=== PATIENT | female | born 1990 | race Caucasian/White ===

== ENCOUNTER 2017-10-19 21:29 | Emergency (ER) | payer MEDICAID ==
[~2017-10-19] VITALS: Ht 172.7 cm; Wt 71.2 kg
--- NOTE | 2017-10-19 22:45 | NUR ---
BIB FAMILY C/O LRQ ABD PAIN X 2 HOURS. DENIES N-V-D, NAD NOTED, VSS, RESP EVEN AND UNLABORED, SKIN WARM AND DRY. PT PUT ON HOSPITAL GOWN AND MONITOR, WAITING FOR MD PAGAN.
[2017-10-19] MEDS ORDERED: ONDANSETRON HCL/PF 4 MG/2 ML VIAL IVP ONE (23:00)
[2017-10-19] MEDS ORDERED: IV NS 0.9% 1,000 ML BAG IV ONE (23:00)
[2017-10-19] MEDS ORDERED: MORPHINE SULFATE INJ 2 MG/ML DISP.SYRIN IV ONE (23:00)
--- NOTE | 2017-10-19 23:00 | NUR ---
IV INSERTED, BLOOD SAMPLE OBTAINED AND URINE. WILL CALL LAB FOR RN ACCESS.
[2017-10-19] MEDS ORDERED: ONDANSETRON HCL/PF 4 MG/2 ML VIAL ONE (23:06)
[2017-10-19] MEDS ORDERED: MORPHINE SULFATE INJ 2 MG/ML DISP.SYRIN ONE (23:07)
--- NOTE | 2017-10-19 23:23 | NUR ---
PT REFUSED THE ZOFRAN AND MORPHINE - RETURNED UNOPENED MORPHINE TO [facility].
--- NOTE | 2017-10-19 23:33 | NUR ---
REPORT GIVEN TO TONY CHARGE NURSE.
[2017-10-19 23:39] LABS: BASOPHILS % (AUTO) 0.6 % (0.0-2.0); EOSINOPHILS # (AUTO) 0.1 /CMM (0.0-0.7); EOSINOPHILS % (AUTO) 1.8 % (0.0-6.0); HEMATOCRIT 41 % (33-45); HEMOGLOBIN 13.5 g/dL (11.5-14.8); LYMPHOCYTES # (AUTO) 2.6 /CMM (0.8-4.8); MEAN CORPUSCULAR HEMOGLOBIN 30 PG (26.0-33.0); MEAN CORPUSCULAR HGB CONC 33 g/dl (31.0-36.0); MEAN CORPUSCULAR VOLUME 90 fL (82-100); MONOCYTES # (AUTO) 0.5 /CMM (0.1-1.30); MONOCYTES % (AUTO) 9.2 % (2.0-12.0); NEUTROPHILS # (AUTO) 2.5 /CMM (1.8-8.9); NEUTROPHILS % (AUTO) 43.4 % (43.0-81.0); PLATELET COUNT (AUTO) 213 /CMM (150-450); RDW COEFFICIENT OF VARIATION 11.9 (11.5-15.0); RED BLOOD CELL COUNT(AUTO) 4.54 MIL/uL (4.0-5.2); WHITE BLOOD COUNT (AUTO) 5.8 K/uL (4.3-11.0)
[2017-10-19 23:40] LABS: APPEARANCE,URINE CLEAR (CLEAR); BILIRUBIN,URINE NEGATIVE (NEGATIVE); BLOOD, URINE NEGATIVE Ery/uL (NEGATIVE); COLOR,URINE YELLOW (YELLOW); KETONES,URINE NEGATIVE (NEGATIVE); LEUKOCYTE ESTERASE ,URINE NEGATIVE (NEGATIVE); NITRITE, URINE NEGATIVE (NEGATIVE); PROTEIN,URINE NEGATIVE (NEGATIVE); UGLUCOSE NEGATIVE (NEGATIVE); UROBILINOGEN,URINE 0.2 EU/dL (0.2)
[2017-10-19 23:52] LABS: CALCIUM, SERUM 9.5 mg/dL (8.5-10.1); CREATININE 0.8 mg/dL (0.6-1.3); POTASSIUM 3.7 mmol/L (3.5-5.1)
[2017-10-19 23:59] LABS: ALBUMIN 3.9 g/dL (3.4-5.0); BILIRUBIN,TOTAL 0.2 mg/dL (0.2-1.0); TOTAL PROTEIN, SERUM 7.6 g/dL (6.4-8.2)
[2017-10-20 00:58] VITALS: BP 106/59
--- NOTE | 2017-10-20 00:58 | NUR ---
PT. VERBALIZED UNDERSTANDING OF AFTERCARE INSTRUCTIONS.Patient discharged to home in stable condition. Written and verbal after care instructions given. Patient verbalizes understanding of instruction.
--- NOTE | 2017-10-20 00:58 | NUR ---
IV removed. Catheter intact and site benign. Pressure and 4x4 applied to site. No bleeding noted.
== END 2017-10-20 00:59 | disposition home or self-care (01) ==
LOC: ER 21:29
DX: N20.1 Calculus of ureter (principal)
CPT/HCPCS: 36415; 74176; 80048; 80076; 81001; 83690; 84702; 85025; 96360; 99285; A4606; J2405; J7030; Z7610; 81000-TC; J2270